=== PATIENT | female | born 1985 | race Caucasian/White ===

== ENCOUNTER 2017-08-04 15:12 | Observation (INO) | payer OTHER ==
[~2017-08-04] VITALS: Ht 165.1 cm; Wt 64.0 kg
[~2017-08-04 15:12] MED LIST: BUPIVACAINE/PF 0.25% ONE; CALC200T3 PO; EPINEPHRINE 1 MG/ML, 1ML ONE; FERR325T18 PO; IBUP-1222 PO; METHYLERGONOVINE 0.2 MG/ML IM ONE; MISOPROSTOL 200 MCG TABLET ONE; OXYC-302 PO; OXYTOCIN 10 UNITS/ML, 1ML ONE; PREN1TAB56 PO; SENN-1 PO
[2017-08-04] MEDS ORDERED: ACETAMINOPHEN 500 MG TABLET PO STA (15:26)
[2017-08-04] MEDS ORDERED: GABAPENTIN 300 MG CAPSULE PO STA (15:26)
[2017-08-04] MEDS ORDERED: LACTATED RINGERS 1,000 ML IV SCH (15:31)
[2017-08-04] MEDS ORDERED: GABAPENTIN 300 MG CAPSULE ONE (15:39)
[2017-08-04] MEDS ORDERED: ACETAMINOPHEN 500 MG TABLET ONE (15:39)
[2017-08-04 15:53] VITALS: BP 118/82
[2017-08-04] MEDS ORDERED: MISO200T4 PO (16:01)
[2017-08-04] MEDS ORDERED: FENTANYL PF 100 MCG/2ML ONE (16:19)
[2017-08-04] MEDS ORDERED: MIDAZOLAM 1 MG/ML, 2ML ONE (16:20)
[2017-08-04] MEDS ORDERED: PROPOFOL 10 MG/ML, 20ML ONE ×3 (16:21→17:54)
[2017-08-04] MEDS ORDERED: LIDOCAINE-MPF 2% ,5ML ONE (16:21)
[2017-08-04] MEDS ORDERED: EPHEDRINE 50 MG/ML, 1ML ONE (16:22)
[2017-08-04] MEDS ORDERED: GABAPENTIN 300 MG CAPSULE PO ONE (16:30)
[2017-08-04] MEDS ORDERED: EPHEDRINE 50 MG/ML, 1ML IVPush PRN (17:00)
[2017-08-04] MEDS ORDERED: ONDANSETRON 2MG/ML, 2ML IVPush PRN (17:00)
[2017-08-04] MEDS ORDERED: OXYcodone 5 MG/5 ML ORAL.SOL UDC PO PRN (17:00)
[2017-08-04] MEDS ORDERED: PROMETHAZINE 25 MG/ML, 1ML IV PRN (17:00)
[2017-08-04] MEDS ORDERED: HYDROmorphone 1 MG/ML, 1ML IV PRN (17:00)
[2017-08-04] MEDS ORDERED: MEPERIDINE/PF 25MG/0.5ML IVPush PRN (17:00)
[2017-08-04] MEDS ORDERED: FENTANYL PF 100 MCG/2ML IV PRN (17:00)
[2017-08-04] MEDS ORDERED: DEXAMETHASONE 4 MG/ML, 1ML ONE (17:34)
[2017-08-04] MEDS ORDERED: ONDANSETRON 2MG/ML, 2ML ONE (17:34)
[2017-08-04] MEDS ORDERED: KETOROLAC 30 MG/1 ML ONE (17:34)
[2017-08-04] MEDS ORDERED: CEFAZOLIN 1,000 MG ONE ×2 (17:52)
[2017-08-04 18:30] VITALS: BP 121/80
[2017-08-04] MEDS ORDERED: RHO D IMMUNE GLOBULIN IM ONE (18:30)
[2017-08-04] MEDS ORDERED: OXYcodone 5 MG/5 ML ORAL.SOL UDC ONE (19:06)
[2017-08-04] MEDS ORDERED: ONDANSETRON 2MG/ML, 2ML IV PRN (20:00)
[2017-08-04] MEDS ORDERED: OXYTOCIN 20 UNITS in LACTATED RINGERS 1,000 ML IV SCH (20:00)
[2017-08-04] MEDS ORDERED: ACETAMINOPHEN 500 MG TABLET PO PRN (20:00)
[2017-08-04] MEDS ORDERED: IBUPROFEN 600 MG TABLET PO PRN (20:00)
[2017-08-04] MEDS ORDERED: HYDROcodone/APAP 5/325 TABLET PO PRN ×2 (20:00)
[2017-08-04 21:25] VITALS: BP 123/79
== END 2017-08-04 21:39 | disposition home or self-care (01) ==
LOC: OR 15:12 → 4NOR 19:37 → OR 19:40 → 4NOR 19:41
PROVIDERS: ADMIT Obstetrics & Gynecology; ATTEND Obstetrics & Gynecology
DX: O36.4XX0 Maternal care for intrauterine death, not applicable or unspecified (principal); O02.1 Missed abortion; Z3A.21 21 weeks gestation of pregnancy
CPT/HCPCS: 36415; 59821; 76817; 86850; 86900; 88305; G0378; J0171; J0690; J1100; J1885; J2210; J2250; J2405; J2590; J2704; J2790; J2792; J3010; J3490; J7120

== ENCOUNTER 2019-01-26 12:17 | Outpatient (CLI) | payer OTHER ==
[~2019-01-26] VITALS: Ht 165.1 cm; Wt 73.6 kg
[~2019-01-26 12:17] MED LIST changes: -BUPIVACAINE/PF 0.25% ONE; -EPINEPHRINE 1 MG/ML, 1ML ONE; -METHYLERGONOVINE 0.2 MG/ML IM ONE; +MISO200T4 PO; -MISOPROSTOL 200 MCG TABLET ONE; -OXYTOCIN 10 UNITS/ML, 1ML ONE; -SENN-1 PO; +SENN-92 PO
[2019-01-26] MEDS ORDERED: DOXY1TAB3 PO (12:42)
[2019-01-26 12:54] VITALS: BP 116/53
[2019-01-26 13:43] LABS: MICROSCOPIC INDICATED
[2019-01-26] MEDS ORDERED: TERBUTALINE 1 MG/ML, 1ML ONE (14:09)
[2019-01-26 14:20] LABS: BASOPHILS # (AUTO) 0.09 x10^3/uL (0-0.1); BASOPHILS % (AUTO) 1 % (0-1); EOSINOPHILS # (AUTO) 0.12 x10^3/uL (0-0.4); EOSINOPHILS % (AUTO) 1 % (1-7); LYMPHOCYTES % (AUTO) 16 % (22-44); MD NO; MEAN CORPUSCULAR HEMOGLOBIN 32.8 pg (27.0-34.8); MEAN CORPUSCULAR HGB CONC 34.5 g/dL (32.4-35.8); MEAN CORPUSCULAR VOLUME 95.1 fL (80-100); MONOCYTES # (AUTO) 0.47 x10^3/uL (0.2-0.8); MONOCYTES % (AUTO) 4 % (2-9); NEUTROPHILS # (AUTO) 8.43 x10^3/uL (1.8-6.8); NEUTROPHILS % (AUTO) 78 % (42-75); PLATELET COUNT 209 x10^3/uL (130-400); RED BLOOD COUNT 3.99 x10^6/uL (3.82-5.3); RED CELL DISTRIBUTION WIDTH 13.1 % (9.6-15.2)
[2019-01-26 14:28] LABS: ALANINE AMINOTRANSFERASE 14 U/L (12-78); ANION GAP 8 mmol/L (5-15); CALCIUM 8.5 mg/dL (8.5-10.1); CHLORIDE 111 mmol/L (98-107)
[2019-01-26] MEDS ORDERED: TERBUTALINE 1 MG/ML, 1ML SQ ONE (14:30)
[2019-01-26 14:31] LABS: ALKALINE PHOSPHATASE 47 U/L (45-117); BILIRUBIN,TOTAL 0.3 mg/dL (0.2-1.0); TOTAL PROTEIN 6.2 g/dL (6.4-8.2)
== END 2019-01-26 15:52 | disposition home or self-care (01) ==
LOC: LDOP 12:17
PROVIDERS: ATTEND Obstetrics & Gynecology
DX: O26.892 Other specified pregnancy related conditions, second trimester (principal); R10.9 Unspecified abdominal pain; Z3A.25 25 weeks gestation of pregnancy
CPT/HCPCS: 59025; 80053; 81001; 82962; 85025; 87086; 96372; 99211; J3105; G0463

== ENCOUNTER 2019-02-19 21:36 | Outpatient (CLI) | payer OTHER ==
[~2019-02-19] VITALS: Ht 165.1 cm; Wt 75.5 kg
[~2019-02-19 21:36] MED LIST changes: +DOXY1TAB3 PO
[2019-02-19 22:32] LABS: BASOPHILS # (AUTO) 0.04 x10^3/uL (0-0.1); BASOPHILS % (AUTO) 0 % (0-1); EOSINOPHILS # (AUTO) 0.16 x10^3/uL (0-0.4); EOSINOPHILS % (AUTO) 2 % (1-7); LYMPHOCYTES % (AUTO) 23 % (22-44); MD NO; MEAN CORPUSCULAR HEMOGLOBIN 32.9 pg (27.0-34.8); MEAN CORPUSCULAR HGB CONC 34.6 g/dL (32.4-35.8); MEAN CORPUSCULAR VOLUME 95.1 fL (80-100); MEAN PLATELET VOLUME 8.3 fL (7.4-10.4); MONOCYTES # (AUTO) 0.62 x10^3/uL (0.2-0.8); MONOCYTES % (AUTO) 6 % (2-9); NEUTROPHILS # (AUTO) 6.82 x10^3/uL (1.8-6.8); NEUTROPHILS % (AUTO) 69 % (42-75); PLATELET COUNT 181 x10^3/uL (130-400); RED BLOOD COUNT 3.65 x10^6/uL (3.82-5.3); RED CELL DISTRIBUTION WIDTH 13.4 % (9.6-15.2)
[2019-02-19] MEDS ORDERED: RHOGAM FROM BLOOD BANK 1 NOTE EA IM/IV ONE (23:30)
== END 2019-02-19 23:44 | disposition home or self-care (01) ==
LOC: LDOP 21:36
PROVIDERS: ATTEND Obstetrics & Gynecology
DX: O46.93 Antepartum hemorrhage, unspecified, third trimester (principal); Z3A.29 29 weeks gestation of pregnancy
CPT/HCPCS: 36415; 59025; 76815; 85025; 86850; 86900; 96372; 99211; J2790; G0463

== ENCOUNTER 2019-04-08 18:38 | Observation (INO) | payer OTHER ==
[~2019-04-08] VITALS: Ht 165.1 cm; Wt 84.0 kg
[2019-04-08 18:59] LABS: MICROSCOPIC NOT IND
[2019-04-08] MEDS ORDERED: BETAMETHASONE 6 MG/ML, 5ML IM SCH (19:30)
[2019-04-08] MEDS ORDERED: PLEASE ENTER HEIGHT AND WEIGHT MC SCH (19:30)
[2019-04-08] MEDS ORDERED: BETAMETHASONE 6 MG/ML, 5ML IM ONE (19:40)
[2019-04-08] MEDS: LACTATED RINGERS 1,000 ML IV PRN ×2 (19:46→20:23)
[2019-04-08 21:47] LABS: BASOPHILS # (AUTO) 0.08 x10^3/uL (0-0.1); BASOPHILS % (AUTO) 1 % (0-1); EOSINOPHILS # (AUTO) 0.09 x10^3/uL (0-0.4); EOSINOPHILS % (AUTO) 1 % (1-7); LYMPHOCYTES # (AUTO) 1.78 x10^3/uL (1-3.4); LYMPHOCYTES % (AUTO) 16 % (22-44); MD NO; MEAN CORPUSCULAR HEMOGLOBIN 33.1 pg (27.0-34.8); MEAN CORPUSCULAR HGB CONC 33.7 g/dL (32.4-35.8); MEAN CORPUSCULAR VOLUME 98.2 fL (80-100); MEAN PLATELET VOLUME 8.9 fL (7.4-10.4); MONOCYTES # (AUTO) 0.39 x10^3/uL (0.2-0.8); MONOCYTES % (AUTO) 4 % (2-9); NEUTROPHILS # (AUTO) 8.75 x10^3/uL (1.8-6.8); NEUTROPHILS % (AUTO) 79 % (42-75); PLATELET COUNT 190 x10^3/uL (130-400); RED BLOOD COUNT 3.97 x10^6/uL (3.82-5.3); RED CELL DISTRIBUTION WIDTH 12.8 % (9.6-15.2)
[2019-04-08 21:54] LABS: ALANINE AMINOTRANSFERASE 10 U/L (12-78); ALBUMIN 2.7 g/dL (3.4-5.0); ANION GAP 9 mmol/L (5-15); CALCIUM 8.8 mg/dL (8.5-10.1); CHLORIDE 110 mmol/L (98-107); CREATININE 0.54 mg/dL (0.55-1.02)
[2019-04-08 21:57] LABS: ALKALINE PHOSPHATASE 72 U/L (45-117); BILIRUBIN,TOTAL 0.4 mg/dL (0.2-1.0); TOTAL PROTEIN 6.1 g/dL (6.4-8.2)
[2019-04-09] MEDS ORDERED: NIFE10CA49 PO (13:42)
== END 2019-04-08 23:00 | disposition home or self-care (01) ==
LOC: LDOP 18:38 → LDIP 22:05
PROVIDERS: ADMIT Obstetrics & Gynecology; ATTEND Obstetrics & Gynecology
DX: O62.9 Abnormality of forces of labor, unspecified (principal); O99.330 Smoking (tobacco) complicating pregnancy, unspecified trimester; Z87.891 Personal history of nicotine dependence; Z3A.00 Weeks of gestation of pregnancy not specified
CPT/HCPCS: 36415; 80053; 81003; 84550; 85025; 86850; 86900; 87086; 96372; G0378; J0702; J7120; 59025; 96360; 99211; G0463

== ENCOUNTER 2019-04-09 09:17 | Outpatient (CLI) | payer OTHER ==
[~2019-04-09] VITALS: Ht 165.1 cm; Wt 84.1 kg
[2019-04-09] MEDS ORDERED: LACTATED RINGERS 500 ML IVBOLUS PRN (09:30)
[2019-04-09] MEDS ORDERED: PLEASE ENTER HEIGHT AND WEIGHT MC SCH (09:30)
[2019-04-09] MEDS: LACTATED RINGERS 1,000 ML IV SCH ×2 (09:44→10:07)
[2019-04-09 09:50] VITALS: BP 125/61
[2019-04-09] MEDS ORDERED: TERBUTALINE 1 MG/ML, 1ML ONE (11:53)
[2019-04-09] MEDS ORDERED: TERBUTALINE 1 MG/ML, 1ML SQ PRN (12:00)
[2019-04-09 12:14] LABS: MICROSCOPIC NOT IND
[2019-04-09 12:17] LABS: CULTURE INDICATED? NO
[2019-04-09] MEDS ORDERED: TERBUTALINE 1 MG/ML, 1ML SQ ONE (12:30)
[2019-04-09] MEDS ORDERED: BETAMETHASONE 6 MG/ML, 5ML IM ONE (13:30)
[2019-04-09] MEDS ORDERED: NIFE10CA49 PO (13:42)
== END 2019-04-09 13:54 | disposition home or self-care (01) ==
LOC: LDOP 09:17
PROVIDERS: ATTEND Obstetrics & Gynecology
DX: O09.93 Supervision of high risk pregnancy, unspecified, third trimester (principal); O62.9 Abnormality of forces of labor, unspecified; R03.0 Elevated blood-pressure reading, without diagnosis of hypertension; Z3A.36 36 weeks gestation of pregnancy
CPT/HCPCS: 76817; 81003; 96360; 96361; 96372; J0702; J3105; J7120; 59025; 99211; G0463

== ENCOUNTER 2019-05-02 05:21 | Inpatient (IN) | payer OTHER ==
[~2019-05-02] VITALS: Ht 165.1 cm; Wt 82.7 kg
[~2019-05-02 05:21] MED LIST changes: +NIFE10CA49 PO
[2019-05-02] MEDS ORDERED: LACTATED RINGERS 1,000 ML IV SCH (05:22)
[2019-05-02] MEDS ORDERED: SODIUM CITRATE/CITRIC ACID 15 ML UDC PO ONE (05:30)
[2019-05-02] MEDS ORDERED: METOCLOPRAMIDE 5 MG/ML, 2ML IV ONE (05:30)
[2019-05-02] MEDS ORDERED: LACTATED RINGERS 1,000 ML IVBOLUS ONE (05:30)
[2019-05-02 05:32] VITALS: BP 135/88
[2019-05-02] MEDS ORDERED: PREN-3 PO (05:39)
[2019-05-02] MEDS ORDERED: NEWBORN KIT ONE (05:42)
[2019-05-02 05:51] LABS: BASOPHILS # (AUTO) 0.02 x10^3/uL (0-0.1); BASOPHILS % (AUTO) 0 % (0-1); EOSINOPHILS # (AUTO) 0.29 x10^3/uL (0-0.4); EOSINOPHILS % (AUTO) 3 % (1-7); LYMPHOCYTES # (AUTO) 2.66 x10^3/uL (1-3.4); LYMPHOCYTES % (AUTO) 27 % (22-44); MD NO; MEAN CORPUSCULAR HEMOGLOBIN 32.8 pg (27.0-34.8); MEAN CORPUSCULAR HGB CONC 33.7 g/dL (32.4-35.8); MEAN CORPUSCULAR VOLUME 97.5 fL (80-100); MEAN PLATELET VOLUME 8.7 fL (7.4-10.4); MONOCYTES # (AUTO) 0.66 x10^3/uL (0.2-0.8); MONOCYTES % (AUTO) 7 % (2-9); NEUTROPHILS # (AUTO) 6.08 x10^3/uL (1.8-6.8); NEUTROPHILS % (AUTO) 63 % (42-75); PLATELET COUNT 172 x10^3/uL (130-400); RED BLOOD COUNT 3.93 x10^6/uL (3.82-5.3); RED CELL DISTRIBUTION WIDTH 13.1 % (9.6-15.2)
[2019-05-02 06:30] LABS: MICROSCOPIC NOT IND
[2019-05-02] MEDS ORDERED: SODIUM CITRATE/CITRIC ACID 15 ML UDC ONE (06:31)
[2019-05-02] MEDS ORDERED: OXYTOCIN 30U/ 0.9% NaCL 500ML 500 ML ONE (06:31)
[2019-05-02] MEDS ORDERED: METOCLOPRAMIDE 5 MG/ML, 2ML ONE ×2 (06:31→07:31)
[2019-05-02 06:36] LABS: ALANINE AMINOTRANSFERASE 14 U/L (12-78); ALBUMIN 2.6 g/dL (3.4-5.0); ANION GAP 9 mmol/L (5-15); CALCIUM 8.9 mg/dL (8.5-10.1); CHLORIDE 110 mmol/L (98-107)
[2019-05-02 06:37] LABS: BILIRUBIN, DIRECT < 0.1 mg/dL (0.1-0.2)
[2019-05-02 06:38] LABS: ALKALINE PHOSPHATASE 92 U/L (45-117); BILIRUBIN,TOTAL 0.2 mg/dL (0.2-1.0); TOTAL PROTEIN 6.3 g/dL (6.4-8.2)
[2019-05-02] MEDS ORDERED: ONDANSETRON ODT 8 MG PO PRN (07:30)
[2019-05-02] MEDS ORDERED: EPHEDRINE 50 MG/ML, 1ML IVPush PRN (07:30)
[2019-05-02] MEDS ORDERED: PROMETHAZINE 25 MG/ML, 1ML IV PRN (07:30)
[2019-05-02] MEDS ORDERED: ONDANSETRON 2MG/ML, 2ML IV PRN ×2 (07:30→09:00)
[2019-05-02] MEDS ORDERED: OXYcodone 5 MG/5 ML ORAL.SOL UDC PO PRN (07:30)
[2019-05-02] MEDS ORDERED: FENTANYL PF 100 MCG/2ML IV PRN (07:30)
[2019-05-02] MEDS ORDERED: MEPERIDINE/PF 25MG/0.5ML IVPush PRN (07:30)
[2019-05-02] MEDS ORDERED: EPINEPHRINE 1 MG/ML, 1ML ONE ×2 (07:31→08:05)
[2019-05-02] MEDS ORDERED: CEFAZOLIN 1,000 MG ONE ×2 (07:31→08:05)
[2019-05-02] MEDS ORDERED: SODIUM CITRATE/CITRIC ACID 30 ML UDC ONE (07:31)
[2019-05-02] MEDS ORDERED: OXYTOCIN 10 UNITS/ML, 1ML ONE ×2 (07:31→08:05)
[2019-05-02] MEDS ORDERED: EPHEDRINE 50 MG/ML, 1ML ONE (08:05)
[2019-05-02] MEDS: LACTATED RINGERS 1,000 ML IV SCH ×4 (08:49→18:49)
[2019-05-02] MEDS: OXYTOCIN 30U/ 0.9% NaCL 500ML 500 ML IV SCH ×2 (08:59→18:49)
[2019-05-02] MEDS ORDERED: ACETAMINOPHEN 325 MG TABLET PO PRN (09:00)
[2019-05-02] MEDS ORDERED: MISOPROSTOL 200 MCG TABLET PR PRN (09:00)
[2019-05-02] MEDS ORDERED: OXYcodone/APAP 5/325MG TABLET PO PRN (09:00)
[2019-05-02] MEDS ORDERED: METHYLERGONOVINE 0.2 MG/ML IM PRN (09:00)
[2019-05-02] MEDS ORDERED: RHOGAM FROM BLOOD BANK 1 NOTE EA IM/IV ONE (09:00)
[2019-05-02] MEDS ORDERED: CALCIUM CARBONATE 500 MG TAB.CHEW PO PRN (09:00)
[2019-05-02] MEDS ORDERED: morphine SULFATE 10 MG/ML, 1ML IVPush PRN (09:00)
[2019-05-02] MEDS ORDERED: MORPHINE SULFATE 4 MG/ML, 1ML IVPush PRN (09:00)
[2019-05-02] MEDS ORDERED: SIMETHICONE 80 MG CHEW TAB PO PRN (09:00)
[2019-05-02] MEDS: PRENATAL VIT/IRON/FA 1 EACH TABLET PO SCH (09:00)
[2019-05-02] MEDS ORDERED: morphine SULFATE 10 MG/ML, 1ML ONE (09:08)
[2019-05-02] MEDS ORDERED: MORPHINE SULFATE 4 MG/ML, 1ML ONE (09:10)
[2019-05-02] MEDS: MORPHINE SULFATE 4 MG/ML, 1ML IVPush PRN ×2 (09:11→09:21)
[2019-05-02] MEDS ORDERED: OXYcodone 5 MG/5 ML ORAL.SOL UDC ONE ×2 (10:00→10:02)
[2019-05-02 10:54] VITALS: BP 157/91
[2019-05-02 11:33] VITALS: BP 153/88
[2019-05-02] MEDS: IBUPROFEN 600 MG TABLET PO PRN ×3 (11:34→23:31)
[2019-05-02] MEDS: OXYcodone IR 5MG TABLET PO PRN ×3 (14:37→22:52)
[2019-05-02 15:49] VITALS: BP 160/91
[2019-05-02 15:50] LABS: BASOPHILS # (AUTO) 0.09 x10^3/uL (0-0.1); BASOPHILS % (AUTO) 1 % (0-1); EOSINOPHILS # (AUTO) 0.16 x10^3/uL (0-0.4); EOSINOPHILS % (AUTO) 1 % (1-7); LYMPHOCYTES # (AUTO) 2.16 x10^3/uL (1-3.4); LYMPHOCYTES % (AUTO) 18 % (22-44); MD NO; MEAN CORPUSCULAR HEMOGLOBIN 33.8 pg (27.0-34.8); MEAN CORPUSCULAR HGB CONC 34.2 g/dL (32.4-35.8); MEAN CORPUSCULAR VOLUME 98.8 fL (80-100); MEAN PLATELET VOLUME 8.7 fL (7.4-10.4); MONOCYTES # (AUTO) 0.69 x10^3/uL (0.2-0.8); MONOCYTES % (AUTO) 6 % (2-9); NEUTROPHILS # (AUTO) 9.07 x10^3/uL (1.8-6.8); NEUTROPHILS % (AUTO) 75 % (42-75); PLATELET COUNT 142 x10^3/uL (130-400); RED BLOOD COUNT 3.35 x10^6/uL (3.82-5.3); RED CELL DISTRIBUTION WIDTH 13.2 % (9.6-15.2)
[2019-05-02 20:03] VITALS: BP 146/86
[2019-05-02 23:51] VITALS: BP 134/78
[2019-05-03] MEDS: LACTATED RINGERS 1,000 ML IV SCH ×5 (00:49→16:49)
[2019-05-03 04:10] VITALS: BP 132/86
[2019-05-03] MEDS: OXYcodone IR 5MG TABLET PO PRN ×2 (04:39→08:54)
[2019-05-03] MEDS: OXYTOCIN 30U/ 0.9% NaCL 500ML 500 ML IV SCH ×2 (04:49→14:49)
[2019-05-03] MEDS: IBUPROFEN 600 MG TABLET PO PRN ×4 (05:36→23:21)
[2019-05-03 07:38] VITALS: BP 146/91
[2019-05-03] MEDS: DOCUSATE 100 MG CAPSULE PO PRN ×2 (08:54→23:21)
[2019-05-03] MEDS: PRENATAL VIT/IRON/FA 1 EACH TABLET PO SCH (08:54)
[2019-05-03] MEDS ORDERED: IBUPROFEN 600 MG TABLET ONE (17:26)
[2019-05-03 20:45] VITALS: BP 139/85
[2019-05-04] MEDS: OXYTOCIN 30U/ 0.9% NaCL 500ML 500 ML IV SCH (00:49)
[2019-05-04] MEDS: LACTATED RINGERS 1,000 ML IV SCH ×3 (00:49→08:49)
[2019-05-04] MEDS: IBUPROFEN 600 MG TABLET PO PRN (05:22)
[2019-05-04 05:50] VITALS: BP 138/90
[2019-05-04 08:10] VITALS: BP 144/89
[2019-05-04] MEDS: PRENATAL VIT/IRON/FA 1 EACH TABLET PO SCH (09:00)
[2019-05-04] MEDS ORDERED: SENN-92 PO (09:14)
[2019-05-04] MEDS ORDERED: IBUP-1222 PO (09:14)
[2019-05-04] MEDS ORDERED: OXYC-302 PO (09:14)
[2019-05-04] MEDS: DOCUSATE 100 MG CAPSULE PO PRN (10:02)
== END 2019-05-04 10:20 | disposition home or self-care (01) | DRG 788 ==
LOC: LDIP 05:21 → 2NW 10:34
PROVIDERS: ADMIT Obstetrics & Gynecology; ATTEND Obstetrics & Gynecology
PROC: 10D00Z1 Extraction of Products of Conception, Low, Open Approach (ICD-10-PCS; principal; 2019-05-02)
PROC: 3E0334Z Introduction of Serum, Toxoid and Vaccine into Peripheral Vein, Percutaneous Approach (ICD-10-PCS; 2019-05-02)
DX: O44.03 Complete placenta previa NOS or without hemorrhage, third trimester (principal); O44.43 Low lying placenta NOS or without hemorrhage, third trimester; Z37.0 Single live birth; Z3A.39 39 weeks gestation of pregnancy; O26.893 Other specified pregnancy related conditions, third trimester; Z67.21 Type B blood, Rh negative
CPT/HCPCS: 36415; 80053; 81003; 82248; 84550; 85025; 85461; 86850; 86870; 86900; 86922; 86923; G0378; J0171; J0690; J2790; C1765; J2270; J2590; J2765; J7120